=== PATIENT | female | born 1980 | race Caucasian/White ===

== ENCOUNTER 2018-11-30 13:25 | Emergency (ER) | payer MEDICAID, SELFPAY ==
[2018-11-30 13:33] VITALS: BP 158/68; PULSE 96; RESP 20; TEMP 36.4; O2SAT 98
--- NOTE | 2018-11-30 14:01 | NUR.NOTE ---
pt feels like she swallowed the meat challenging with luis-laura Nursing Note:
--- NOTE | 2018-11-30 14:07 | ED.GENADUL_ITS ---
Discharge Plan Disposition Patient Disposition: HOME Condition: Improving Discharge Details Chief Complaint: ThroatFB Clinical Impression: Foreign body in throat Primary Care Provider: Francisco Greene ED Provider: Landen Riddle Home Meds and New Rx's Prescriptions: Continued folic acid 0.4 MG tablet 0.4 mg PO DAILY RF: 0 methotrexate sodium 2.5 MG tablet 8 tab PO wkly RF: 0 meloxicam 7.5 MG tablet 1 tab PO DAILY RF: 0 Discharge Instructions Instructions: Foreign Body in Pharynx (ED) Additional Instructions: Return to the emergency department for any difficulty breathing, swallowing, cough, fever chills. Otherwise follow-up with your primary care provider as needed for reassessment Referrals: Francisco Greene MD [Primary Care Provider] - (As needed) Discharge Data Discharge Date/Time-TO BE ENTERED AT DEPARTURE: 11/30/18 14:43 Medical Decision Making Patient presenting to the emergency department for chief complaint of foreign body in her throat. Patient states that she was eating pork for lunch and felt like a piece got stuck in her throat. She was unable to swallow and started having drooling and some shortness of breath. Patient presented to the emergency department continue to have the symptoms. Notes nursing staff noted that patient was having some drooling and slight hoarse voice upon presentation. By the time I was able to assess the patient patient states that she felt that she had swallowed the foreign body and only had mild irritation to her neck. Physical exam is unremarkable and patient has no evidence of airway obstruction on exam. Patient was given carbonated cola to drink and observed for any worsening symptoms. Otherwise given that patient's symptoms have resolved I do not feel that any further interventions or imaging is required at this time. Patient observed for 1 hour reassessed she now has only had improvement of symptoms no cough, and only states mild irritation to her throat. I do not feel that any other interventions are needed. Return precautions were closely discussed with patient. After discussion of diagnosis and plan of care patient has no further needs, questions, or concerns and states clear understanding to return to the emergency department for any worsening symptoms. HPI General Mode of arrival: ambulatory . Date/Time Provider Initiated Documentation: 11/30/18 13:29 . Limitations to Documentation: no limitations . Information obtained by: patient and RN notes reviewed . History of Present Illness 38 year old F presents to the emergency department with the chief complaint of Foreign body throat, described as mild, with intensity rated at 2. Quality is described as aching, and is localized to the neck. Patient started experiencing this minute(s) (30) and it has been constant. Patient did receive the following treatments prior to arrival, none Related Data Home Medications Medication Instructions Recorded Confirmed folic acid 0.4 mg PO DAILY tab-cap 08/24/14 11/30/18 methotrexate sodium 8 tab PO wkly 08/24/14 11/30/18 meloxicam 1 tab PO DAILY 11/29/17 11/30/18 Allergies Allergy/AdvReac Type Severity Reaction Status Date / Time No Known Allergies Allergy Unverified 11/30/18 13:35 General Stated Complaint: ThroatFB SORIN: 3 Review of Systems ENT Reports as per HPI Cardiovascular Denies chest pain, Denies syncope and Reports dyspnea Respiratory Reports as per HPI, Reports cough and Reports dyspnea Gastrointestinal Denies nausea and Denies vomiting Neurologic Denies syncope PFSH Medical History Anxiety (Acute 02/01/18) Rheumatoid arthritis involving multiple sites with positive rheumatoid factor (Acute 09/20/15) Frequent headaches Family History Mother Essential hypertension Neoplasm Father Essential hypertension Hyperlipidemia Grandfather Myocardial infarction Grandmother Myocardial infarction Grandfather Heart disease Grandmother No problems noted. Social History Smoking/Tobacco Use Status: Former Tobacco Use Drug use: Never Exam Const General: cooperative, no acute distress and not ill appearing Orientation: alert, awake and oriented x3 HENMT Face and sinus: normal facial exam Mouth: lip normal, tongue normal, oropharynx normal, moist mucous membranes, no audible dysphonia, no drooling and no trismus Throat: posterior oropharynx normal, tonsils normal and uvula midline Resp Effort & Inspection: normal respiratory effort, able to speak in complete sentences and no respiratory distress Auscultation: clear to auscultation bilaterally Cardio Rate: regular rate Rhythm: regular rhythm Heart Sounds: S1 normal and S2 normal Neuro General: alert, awake, oriented x3 and moves all extremities Course Vital Signs Temperature 36.4 C L 11/30/18 13:33 Pulse 96 H 11/30/18 13:33 Respiratory Rate 20 11/30/18 13:33 Blood Pressure 158/68 H 11/30/18 13:33 Pulse Oximetry 98 11/30/18 13:33 Temperature 36.4 C L 11/30/18 13:33 Temperature Source Temporal Artery Scan 11/30/18 13:33 Pulse 96 H 11/30/18 13:33 Respiratory Rate 20 11/30/18 13:33 Respiratory Effort Non-Labored 11/30/18 13:39 Respiratory Pattern Normal 11/30/18 13:39 Blood Pressure 158/68 H 11/30/18 13:33 Pulse Oximetry 98 11/30/18 13:33 Oxygen Delivery Method Room Air 11/30/18 13:33 Oxygen Flow Rate 0 11/30/18 13:33 Pain Level 0 11/30/18 13:33
== END 2018-11-30 14:43 | disposition home or self-care (01) ==
PROVIDERS: Emergency Provider Nurse Practitioner Family; PCP Family Medicine
DX: T18.128A Food in esophagus causing other injury, initial encounter (principal)
CPT/HCPCS: 99282

== ENCOUNTER 2020-07-22 11:27 | Outpatient (CLI) | payer MEDICAID, SELFPAY ==
[2020-07-22 12:56] LABS: Abs Immature Grans 0.02 10^3/uL (0.0-0.06); Absolute Basophil Count 0.04 10^3/uL (0.0-0.2); Absolute Lymphocyte Count 1.73 10^3/uL (1.2-3.4); Absolute Monocyte Count 0.43 10^3/uL (0.1-0.8); Absolute Neutrophil Count 4.55 10^3/uL (1.2-6.7); Basophils % 0.6; Eosinophils % 1.5; HGB 12.7 g/dL (11.2-15.7); Immature Grans % 0.3; Lymphocytes % 25.2; MCH 31.1 pg (27.0-33.0); MCHC 33.4 % (32.0-36.0); MCV 93.1 fL (80-95); MPV 10.3 fL (8.0-11.0); Monocytes % 6.3; Neutrophils % 66.1; Nucleated RBC 0 %; Platelet Count 307 10^3/uL (130-400); RBC 4.08 10^6/uL (3.93-5.22); RDW 12.7 % (11.7-14.6); RDW-SD 43.1 fL; WBC 6.87 10^3/uL (4.4-10.8)
[2020-07-22 13:16] LABS: ALT 23 U/L (14-59); AST 17 U/L (15-37); Albumin 4.2 g/dL (3.4-5.0); Alkaline Phosphatase 50 U/L (46-116); Anion Gap 7.9 mmol/L (3-11); BUN 12 mg/dL (7-18); Bilirubin, Total 0.5 mg/dL (0.2-1.0); CO2 27.1 mmol/L (21.0-32.0); CREATININE 0.89 mg/dL (0.55-1.02); Calcium 8.6 mg/dL (8.5-10.1); Chloride 102 mmol/L (98-107); Glucose 93 mg/dL (74-106); Sodium 137 mmol/L (136-145); Total Protein 7.7 g/dL (6.4-8.2)
== END 2020-07-22 11:47 ==
DX: F41.9 Anxiety disorder, unspecified (principal); K21.9 Gastro-esophageal reflux disease without esophagitis; M05.79 Rheumatoid arthritis with rheumatoid factor of multiple sites without organ or systems involvement
CPT/HCPCS: 36415; 80053; 85025

== ENCOUNTER 2020-07-26 02:12 | Outpatient (CLI) | payer MEDICAID, SELFPAY ==
--- NOTE | 2020-07-26 | DI.US_ITS ---
EXAM: MG MAMMO SCREENING, US BREAST RT COMPLETE, US BREAST LT COMPLETE CLINICAL HISTORY: SCREENING, Z12.39; PER DR. THOMPSON, FAMILY HX. PALPABLE ABNORMALITY, SUPERIOR LEFT BREAST. TECHNIQUE: Craniocaudal and mediolateral oblique Full Field Digital Mammography views of the both br easts with Computer Aided Diagnosis followed by Tomosynthesis and bilateral breast ultrasound. COMPARISON: US US BREAST LT COMPLETE from 07/26/2020 FINDINGS: This is a baseline examination. The patient notes a palpable abnormality in the superior left breast . Mammography/Tomosynthesis: The breasts are composed of extremely dense fibroglandular tissue, which decreases the sensitivity of the mammogram and may obscure underlying lesions. Masses/Architectural Distortion: A smoothly marginated mass is seen in the 12 o'clock position of the left breast measuring roughly 2 cm. A spot compression view with tomography was performed of the medial right breast for an area of asymm etry. No persistent abnormality was present. Microcalcifications: No suspicious pleomorphic-type are seen. Skin Thickening/Nipple Retraction: None. Right breast US: Echotexture: Normal appearance of the glandular tissue. Shadowing: No suspicious foci. Cyst: 7 x 3 x 4 millimeter circumscribed hypoechoic lesion with increased through transmission is not ed in the 11 o'clock position 1 cm from the nipple. This could represent a cyst with debris or a sma ll fibroadenoma. No suspicious masses are identified. Ductal dilation: None. Left breast ultrasound: The palpable abnormality corresponds to a circumscribed ovoid hypoechoic lesi on measuring 1.9 x 1.6 x 0.9 cm. There is increased through transmission. Findings likely represent a fibroadenoma. IMPRESSION: 1. Left breast: 1.9 centimeter hypoechoic lesion corresponding to the palpable abnormality, likely re presenting a fibroadenoma. Six-month follow-up ultrasound is recommended. Due to the family history of breast cancer, biopsy or MRI could be considered. 2. Right breast: 7 millimeter cyst versus fibroadenoma. Annual follow-up is recommended. BI-RADS Category 3 - 6 month - Probably Benign Finding: Recommend follow-up ultrasound in 6 months Breast Density - Category D - Extremely dense Breast density category C or D implies that the patient has dense breast tissue. Dense breast tissue is very common and is not abnormal but dense breast tissue can make it harder to find cancer on a ma mmogram. Also, dense breast tissue may increase their breast cancer risk. This information about the result of the mammogram report was provided to the patient to raise their awareness. Use this report when you speak with the patient about their risks for breast cancer, which includes their family hist ory. At that time, you may recommend for more screening tests (Ultrasound or MRI) as they might be us eful based on their risk. A negative radiographic report should not delay biopsy if a dominant or clinically suspicious mass is present. Up to ten percent of cancers are not identified on mammography. A negative report may reinforce clinical impression. Adenosis and dense breasts may obscure an underlying neoplasm. False positive reports average 6 to 10%. Patient will receive a letter notifying them of these results.
== END 2020-07-26 02:32 ==
DX: Z12.31 Encounter for screening mammogram for malignant neoplasm of breast (principal); Z80.3 Family history of malignant neoplasm of breast; R92.8 Other abnormal and inconclusive findings on diagnostic imaging of breast
CPT/HCPCS: 76642; 77063; 77067

== ENCOUNTER 2021-10-16 04:17 | Outpatient (CLI) | payer MEDICAID, SELFPAY ==
[2021-10-16 09:29] LABS: Abs Immature Grans 0.02 10^3/uL (0.0-0.06); Absolute Basophil Count 0.05 10^3/uL (0.0-0.2); Absolute Eosinophil Count 0.15 10^3/uL (0.0-0.7); Absolute Lymphocyte Count 1.77 10^3/uL (1.2-3.4); Absolute Monocyte Count 0.48 10^3/uL (0.1-0.8); Absolute Neutrophil Count 4.75 10^3/uL (1.2-6.7); Basophils % 0.7; Eosinophils % 2.1; HCT 35.5 % (36.0-46.0); Immature Grans % 0.3; Lymphocytes % 24.5; MCH 31.2 pg (27.0-33.0); MCHC 33.8 % (32.0-36.0); MCV 92.2 fL (80-95); MPV 9.7 fL (8.0-11.0); Monocytes % 6.6; Neutrophils % 65.8; Nucleated RBC 0 %; Platelet Count 242 10^3/uL (130-400); RBC 3.85 10^6/uL (3.93-5.22); RDW 12.2 % (11.7-14.6); WBC 7.22 10^3/uL (4.4-10.8)
[2021-10-16 10:59] LABS: Calculated LDL 137 mg/dL (<100); Cholesterol 211 mg/dL (<200); HDL Cholesterol 60 mg/dL (40-60); Triglyceride 74 mg/dL (<150)
[2021-10-16 11:00] LABS: ALT 24 U/L (14-59); AST 17 U/L (15-37); Albumin 3.9 g/dL (3.4-5.0); Alkaline Phosphatase 47 U/L (46-116); Anion Gap 7.3 mmol/L (3-11); BUN 12 mg/dL (7-18); Bilirubin, Total 0.6 mg/dL (0.2-1.0); CO2 27.7 mmol/L (21.0-32.0); CREATININE 0.8 mg/dL (0.55-1.02); Calcium 8.5 mg/dL (8.5-10.1); Chloride 105 mmol/L (98-107); Glucose 91 mg/dL (74-106); Potassium 4.6 mmol/L (3.5-5.1); Sodium 140 mmol/L (136-145); Total Protein 7.2 g/dL (6.4-8.2)
== END 2021-10-16 04:18 | disposition home or self-care (01) ==
PROVIDERS: Internal Medicine; PCP Nurse Practitioner
DX: Z13.220 Encounter for screening for lipoid disorders (principal); M05.79 Rheumatoid arthritis with rheumatoid factor of multiple sites without organ or systems involvement; Z79.899 Other long term (current) drug therapy
CPT/HCPCS: 36415; 80053; 80061; 85025

== ENCOUNTER 2021-11-03 02:18 | Outpatient (CLI) | payer MEDICAID, SELFPAY ==
--- NOTE | 2021-11-03 07:00 | DI.US_ITS ---
Exam(s) US PELVIS TRANSVAGINAL EXAM: US PELVIS TRANSVAGINAL CLINICAL HISTORY: enlarged uterus, heavy menstrual bleeding,n92.0,n85.2 TECHNIQUE: Ultrasound of the pelvis was performed both transabdominal and transvaginal. COMPARISON: US US BREAST RT COMPLETE from 07/26/2020 FINDINGS: UTERUS: Nongravid and anteverted. Prominent scar noted lower uterine segment Measures 6.6 cm length x 3.7 cm AP x 5.0 cm wide. There are no uterine fibroids. Endometrial thickness measures 8.2 mm. There is no fluid in the endometrial canal. CERVIX: There are no obvious nabothian cysts. RIGHT OVARY: Measures 1.9 x 2.3 x 2.0 cm Contains 2 cysts, probably follicular. The larger measures 1.2 x 1.1 x 1 cm LEFT OVARY: Measures 2 x 2.2 x 1.4 cm Contains cyst measuring 1 1 x 1.0 cm CUL-DE-SAC: No free fluid evident. IMPRESSION: 1. Prominent scar noted. No uterine fibroids evident. Endometrial stripe thickness is 8.2 millimeters. No fluid in the endometrial canal. 2. Cysts in both ovaries which are probably follicular. Largest of these cysts measures 12 by 11 x 1 0 millimeter (right ovary). 3. No extraovarian adnexal masses and no free fluid in the adnexal regions are cul-de-sac. DATA REPOSITORY:
== END 2021-11-03 02:38 ==
PROVIDERS: PCP Nurse Practitioner; Visit Provider Nurse Practitioner Women's Health
DX: N85.2 Hypertrophy of uterus (principal); N92.0 Excessive and frequent menstruation with regular cycle; N83.01 Follicular cyst of right ovary; N83.02 Follicular cyst of left ovary; Z98.891 History of uterine scar from previous surgery
CPT/HCPCS: 76830; 76856

== ENCOUNTER 2022-09-11 00:31 | Outpatient (CLI) | payer MEDICAID, SELFPAY ==
--- NOTE | 2022-09-11 06:30 | DI.RAD_ITS ---
Exam(s) RF BARIUM SWALLOW EXAM: RF BARIUM SWALLOW CLINICAL HISTORY: solid dysphagia, at CP level,R13.14 TECHNIQUE: 2D and realtime digital imaging was performed. CONTRAST MATERIAL: Oral barium Oral water soluble contrast was administered. COMPARISON: No exams were available for comparison FINDINGS: CHEST X-RAY: The heart and pulmonary vasculature are within normal limits. The lungs are clear. No pl eural effusion or pneumothorax is present. The bones are within normal limits for the patient's age. Mild degenerative changes are seen in the cervical spine. There is straightening of the normal cervi sarah lordosis. ESOPHAGRAM: The esophagus is patent with no evidence for erosions, fold thickening, strictures, or ma sses. With regards to the motility, there is a normal primary stripping wave. No tertiary contraction s were noted. There is no hiatal hernia or gastroesophageal reflux. The patient was able to swallow b arium tablet without difficulty. IMPRESSION: Normal esophagram RADIATION DOSE DELIVERED: Paulr=14.8 mGy
[2022-09-11] MEDS: Barium Sulfate 60% W/V 355 ML BTL PO (09:50)
[2022-09-11] MEDS: Barium Sulfate 98% W/W 140 ML BTL PO (09:51)
== END 2022-09-11 00:51 ==
LOC: DI 00:32
PROVIDERS: PCP Nurse Practitioner Family; Visit Provider Otolaryngology
DX: R13.14 Dysphagia, pharyngoesophageal phase (principal)
CPT/HCPCS: 74221; J3490

== ENCOUNTER 2022-10-27 07:33 | Day surgery (SDC) | payer MEDICAID, SELFPAY ==
[2022-10-27 08:25] VITALS: BP 105/55; PULSE 75; RESP 16; TEMP 36.5; O2SAT 98
[2022-10-27] MEDS: Lactated Ringers 1,000 ML 80 ML IV (08:35)
--- NOTE | 2022-10-27 08:50 | W.ANESPRE ---
General Info Date of Service Date Performed: 10/27/22 Height: 5 ft 6.5 in Weight: 71.8 kg Body Mass Index (BMI): 25.1 Surgical Procedure: Operation Date: 10/27/22 09:50 Proposed Procedure Side Surgeon p Gastroscopy w/Biopsy Drake Alcantara MD Meds Allergies and Home Medications Allergies Allergy/AdvReac Type Severity Reaction Status Date / Time No Known Allergies Allergy Verified 09/28/22 10:40 Home Medication Medication Instructions Recorded folic acid 400 mcg tablet 0.4 mg PO DAILY 08/24/14 methotrexate sodium 2.5 mg tablet 25 mg PO wkly 08/05/21 pantoprazole 40 mg tablet,delayed 40 mg PO DAILY #30 tabs 09/28/22 release (Protonix) sucralfate 1 gram tablet (Carafate) 1 g PO BID #60 tabs 09/28/22 Current Visit Medications: Current Medications Generic Name Dose Route Start Last Admin Trade Name Freq PRN Reason Stop Dose Admin Ringer's Solution 1,000 mls @ 80 mls/hr 10/27/22 06:00 10/27/22 08:35 IV 11/25/22 23:59 80 mls/hr INFUSION GURDEEP Administration IV Miscellaneous Supplies 1 each 10/27/22 06:00 Iv Access IV 11/25/22 23:59 DIRECTED GURDEEP Sodium Chloride 0 ml 10/27/22 06:00 Normal Saline Flush 10 Ml Syr IV 11/25/22 23:59 PRN PRN Sodium Chloride 0 ml 10/27/22 06:00 Normal Saline 10 Ml Vial IJ 11/25/22 23:59 DIRECTED PRN Sterile Water 0 ml 10/27/22 06:00 Water,Injection,Sterile 10 Ml Vial IJ 11/25/22 23:59 DIRECTED PRN PFSH Active Problems Active Problems: Problem Status Onset Code Erosive esophagitis K22.10 Pharyngoesophageal dysphagia R13.14 Hyperpigmented skin lesion L81.9 Bulky or enlarged uterus N85.2 Screening cholesterol level Z13.220 Abnormality of left breast on screening mammogram R92.8 Dysphagia R13.10 GERD (gastroesophageal reflux disease) K21.9 Anxiety 02/01/18 F41.9 Rheumatoid arthritis involving multiple sites with positive rheumatoid factor 09/20/15 M05.79 Medical History Medical History Frequent headaches Surgical History Surgical History History of bilateral tubal ligation Tobacco Smoking/Tobacco Use Status: Former Tobacco Use Passive smoking exposure: Yes Second hand exposure: Yes Alcohol Alcohol Intake: current Alcohol intake frequency: a few times a month Alcohol type: beer Substance Use Substance use: Never Substance use type: does not use Counseling provided: none Prental History History 4 Para 3 Hx # Term Pregnancies Multiple births 1 Hx # Pregnancies Ectopic pregnancies AB induced Hx Number of Living Children 2 AB spontaneous Vital Signs and Lab Results Vital Signs Most Recent Vital Signs in EMR: Most Recent Vital Signs Temp Pulse Resp BP Pulse Ox 36.5 C 75 16 105/55 L 98 10/27/22 08:25 10/27/22 08:25 10/27/22 08:25 10/27/22 08:25 10/27/22 08:25 Point of Care Results Point of Care Results: POC- Test(urine) Negative 10/27/22 08:46 Lab Results Blood Type / Crossmatch: No Data to Display Complete Blood Count: No Data to Display Complete Metabolic Panel: No Data to Display Liver Function Panel: No Data to Display Coagulation Panel: No Data to Display Cardiac Panel: No Data to Display Arterial Blood Gas: No Data to Display Venous Blood Gas: No Data to Display Pancreas Panel: No Data to Display Thyroid Panel: No Data to Display Infectious Disease: No Data to Display Blood Cultures: No Data to Display Toxicology Panel: No Data to Display Panel: No Data to Display Anesthesia Assessment and Plan Anesthesia History Personal History: No History of Anesthesia Complications Family History: No Family History of Anesthesia Complications Exercise Tolerance Exercise Tolerance: Metabolic Equivalents>4 Pertinent Negatives Pertinent Negatives: No Major Cardiovascular Symptoms or Complaints, No Major Pulmonary Symptoms or Complaints and No History of CVA/TIA Cardiac & Pulmonary Exam Cardiac Exam: Normal S1/S2 Heart Sounds Pulmonary Exam: Clear Bilateral Breath Sounds Implantable Cardiac Device Does patient have a Pacemaker or an ICD?: No Airway Exam Known Difficult Airway: No Mallampati Class: 2 Mouth Opening: Normal (> 3cm) Thyromental Distance: Greater than 3 cm Neck Range of Motion: Full ROM Neck Circumference: Normal Teeth Condition: Normal Dentition ASA Classification ASA Score: ASA 2 Emergency Case?: No NPO Status NPO Status: NPO Clears >2 hours, Solids >8 hours Status Status: Negative HCG Anesthesia Plan Resuscitation Status: Full Code Anesthesia Technique: General Anesthesia Airway Planned: Natural Airway Monitors Used: Standard Monitors
[2022-10-27 09:13] VITALS: BMI 25.1
--- NOTE | 2022-10-27 10:16 | ENDO_ITS ---
Date of service: 10/27/22 Time of Service: 10:16 Endoscopy Report PROCEDURE DESCRIPTION: Procedures performed: 1.? Esophagogastroduodenoscopy with cold forceps biopsies Preoperative diagnosis: Dysphagia Postoperative diagnosis: Distal esophagus stricture, sub-centimeter sliding hia ines hernia Surgeon: Jim Alcantara Anesthesia: Alisha Indication for procedure: 42-year-old woman with a couple years of dysphagia to solid foods. Only once have things actually gotten stuck and stayed stuck. This runs in her family she reports. She denies any esophageal trauma. She does have a history of acid reflux many years ago but it has not been a current problem for her. Dysphagia is in the cervical region - it is not retrosternal. She had a normal esophagram recently. Findings: - D3, D2 and D1 - normal - no inflammation or ulcers - Pylorus - patent.? No bile reflux visualized during procedure. - Antrum - looks normal visually- biopsies taken to rule out occult H. pylori - Stomach Body -normal/healthy appearance.? ? - Fundus -? Normal.? No polyps. - Hiatus - Retroflexion showed a very small, type I sliding hiatal hernia (subcentimeter slide) - Esophagus - distal esophagus does not look inflamed at al despite small hernia.? There is a complete, 360 degree stricture here(~35cm). It has a benign appearance. I biopsied it in 3 separate locations. Because of dysphagia biopsies were taken in the mid and cervical esophagus to rule out eosinophilic esophagitis. Special care was taken in the cervical esophagus to examine it. No diverticulum or inflammation or webs was seen in the cervical esophagus however at the level of the cricopharyngeus there is some sort of extrinsic mechanical process making a bump in the posterior esophagus. I wonder if some sort of prominence in the bony aspect of her spine is causing this. - Hypopharynx and cords appear normal visually. Follow-up recommendations: Pending biopsy results.? It is hard to understand how a distal stricture would be causing cervical dysphagia . . . If this stricture is problematic she should really be feeling things get stuck behind her sternum. Dilation is an option but it is not my practice to perform dilation without first knowing the biopsy results of the strictures as well as the possibility of underlying eosinophilic esophagitis. Complications: None Blood loss: Minimal Specimens:? YES Procedure in detail: Written consent was obtained from the patient who was in agreement with the risks, benefits and indications of the procedure.? We went to the endoscopy suite and laid the patient in left lateral decubitus position.? Anesthesia was administered which was tolerated well.? A timeout was performed and when we are all in agreement we began the procedure. A well?lubricated endoscope was advanced without difficulty down the esophagus, into the stomach, through a patent pylorus and into the duodenum.? It was then slowly pulled back with findings noted above. The scope was then removed and the patient tolerated the procedure well and was then turned for the colonoscopy portion of the procedure (see separate procedure note)
--- NOTE | 2022-10-27 10:27 | ESO_PTH ---
PATIENT: Adelita Fam LOC: [facility] U#:[id number] AGE/SX: 42/F ROOM: RE10/27/[address]: Drake Alcantara : 1980 BED: DIS: 10/27/2022 SPEC #: [id number] RECD: 10/27/22 12:49 STATUS: ARNAUD MILLER #: [id number] CHIOMA: 10/27/22 10:[address]: Drake Alcantara DEPT: Surgical Specimen RECD BY: Kasandra Beckman ENTERED: 10/27/22 12:50 SP TYPE: Lissetho TERESA DR: Linnea Lee, COAL PASSER Tissues: 1 - STOMACH BIOPSY 2 - ESOPHAGUS BIOPSY 3 - ESOPHAGUS BIOPSY 4 - ESOPHAGUS BIOPSY 5 - ESOPHAGUS BIOPSY Procedures: GROSS AND MICRO LEVEL 4 Comments: [id number]
[2022-10-27 10:44] VITALS: BP 109/56; PULSE 85; RESP 16; TEMP 36.4; O2SAT 94
[2022-10-27 11:20] VITALS: BP 101/63; PULSE 63; RESP 16; TEMP 36.4; O2SAT 98
--- NOTE | 2022-10-27 11:45 | W.ANESPOSTOP ---
Postoperative Evaluation Date, Time and Location Date Performed: 10/27/22 Time Performed: 11:40 Patient Location: Day Surgery Unit Vital Signs Most Recent Imported Vital Signs: Most Recent Vital Signs Temp Pulse Resp BP Pulse Ox 36.4 C L 63 16 101/63 98 10/27/22 11:20 10/27/22 11:20 10/27/22 11:20 10/27/22 11:20 10/27/22 11:20 Pain Score Most Recent Pain Score: Most Recent Pain Score Pain Level 2 10/27/22 11:20 Assessment Mental Status: Awake (Alert & Oriented to Patient Baseline) Airway and Respiratory Function: Patent airway with normal (patient baseline) respiratory exam Cardiovascular Function: Hemodynamically Stable Hydration Status: Adequately Hydrated Nausea & Vomiting: No Nausea or Vomiting Pain: Pain is tolerable per patient Peripheral Nerve Block: Patient did not receive a nerve block Postoperative Comments:: Burning sensation in throat/mid chest, not associated with breathing, surgeon aware, most likely GERD
== END 2022-10-27 11:42 | disposition home or self-care (01) ==
PROVIDERS: PCP Nurse Practitioner Family; Visit Provider Student in an Organized Health Care Education/Training Program
PROC: 0DJ68ZZ Inspection of Stomach, Via Natural or Artificial Opening Endoscopic (ICD-10-PCS; CPT 43235; principal; 2022-10-27 09:45)
DX: K22.2 Esophageal obstruction (principal); K44.9 Diaphragmatic hernia without obstruction or gangrene; K22.89 Other specified disease of esophagus; K31.89 Other diseases of stomach and duodenum
CPT/HCPCS: 43239; 88305

== ENCOUNTER 2022-11-24 20:18 | Emergency (ER) | payer MEDICAID, SELFPAY ==
[2022-11-24 20:22] VITALS: BP 143/61; PULSE 98; RESP 14; TEMP 36.7; O2SAT 100
--- NOTE | 2022-11-24 20:41 | DI.CT_ITS ---
Exam(s) CT ABDOMEN PELVIS W EXAM: CT ABDOMEN PELVIS W CLINICAL HISTORY: left lower abdominal pain. TECHNIQUE: Imaging Protocol: Axial computed tomography images with coronal and sagittal reformatted images were created and reviewed CONTRAST MATERIAL: Intravenous: Omnipaque-350 100cc Oral: None COMPARISON: No exams were available for comparison FINDINGS: VISUALIZED LUNG BASES: There is a pleural based density in the lateral basal segment of the left lowe r lobe which measures 6 x 4 mm. No other findings in the lung bases. No pleural effusions.. ABDOMEN: There is no ascites. LIVER: There are no focal hepatic lesions evident. No dilated intrahepatic ducts. GALLBLADDER/BILIARY: No obvious gallbladder pathology. CBD is not dilated. PANCREAS: No evidence of pancreatic mass nor dilatation of the pancreatic duct. SPLEEN: Spleen is not enlarged. No obvious intrasplenic lesions. Splenic and portal veins are paten t. ADRENALS: There are no significant adrenal masses. KIDNEYS:No cysts evident. No solid renal masses. No calculi nor hydronephrosis.. ABDOMINAL AORTA: Abdominal aorta is not enlarged. LYMPH NODES:There is no retroperitoneal nor paraaortic adenopathy. ABDOMINAL WALL: No evidence of significant anterior abdominal wall nor inguinal hernia. GI: There is no evidence of bowel obstruction, free air, nor abscess. PELVIS: GI: No evidence of appendicitis.No evidence of sigmoid diverticulitis. LYMPH NODES: There is no intrapelvic nor inguinal adenopathy. REPRODUCTIVE: Uterus size normal. Multiple cysts are noted in the slightly prominent right ovary, th nanda cysts measuring to 2.5 x 2.2 cm size. On the opposite-left side there also multiple small cysts in the left ovary. There is also a peripherally enhancing tubular structure in the left adnexa measu ring 8 mm diameter and suspicious for enlarged left fallopian tube. No free fluid evident. URINARY BLADDER: No calculi nor obvious masses evident OSSEOUS: No fractures and no significant osseous lesions. IMPRESSION: 1. The main finding here is a peripherally enhancing 8 mm diameter tubular fluid-filled structure in the left adnexa, concerning for hydro or pyosalpinx/salpingitis. Such as seen with pelvic inflammato ry disease. 2. Follicular cysts in both ovaries noted. The largest is in the right ovary and measures 2.5 x 2.2 cm. There is no dilated fallopian tube on the right side. RADIATION DOSE DELIVERED: 1,070.26mGy.cm Total DLP DATA REPOSITORY: All CT scans at this facility are submitted to the National Radiology Data Registry (NRDR) Dose Index Registry (DIR) with the [employer] (A[employer]). RADIATION OPTIMIZATION: All CT scans at this facility use at least one of these dose optimization te chniques: automated exposure control; mA and/or kV adjustment per patient size (includes targeted exa ms where dose is matched to clinical indication); or iterative reconstruction.
--- NOTE | 2022-11-24 20:43 | ED.GENADUL_ITS ---
Discharge Plan Disposition Patient Disposition: Home Condition: Stable Discharge Details Clinical Impression: Abdominal pain Primary Care Provider: Linnea Lee ED Provider: Saul Coronel Home Meds and New Rx's Prescriptions: New doxycycline hyclate 100 mg tablet 100 mg PO BID Qty: 28 0RF metronidazole 500 mg tablet 500 mg PO BID Qty: 28 0RF Continued methotrexate sodium 2.5 mg tablet 25 mg PO wkly Patient Comments: 08/24/14 rx by [facility]. 11/29/18 takes 10 tabs weekly. DL 04/04/19 10 tabs PO once weekly Per [facility] Rheumatology. DL 05/06 7 tabs (17.5mg) per [facility] pantoprazole [Protonix] 40 mg tablet,delayed release (DR/EC) 40 mg PO DAILY Qty: 30 12RF sucralfate [Carafate] 1 gram tablet 1 g PO BID Qty: 60 6RF Humira(CF) 40 mg/0.4 mL syringe kit 40 mg subcut QWEEK folic acid 0.4 MG tablet 0.4 mg PO DAILY Patient Comments: 08/24/14 no sure of mg. rx by [facility]. md Discharge Instructions Additional Instructions: Your urine test showed evidence of a urinary tract infection. Your cat scan showed evidence of an infection of your reproductive organs follow up alice with women's wellness to determine if you need to continue antibiotics and have a follow up ultrasound if you develop severe worsening pain, persistent vomiting or fevers return to the emergency department Medical Decision Making 42 yo female with two previous c sections, hx of gerd, RA, who comes in with 2 days of left sided abdominal pain. She denies fevers, vomiting, has had some nausea. She states she had a normal BM yesterday, has had some discomfort in the abdomen with urination, no vaginal bleeding but states she has chronic vaginal discharge that is unchanged or worsened, denies concern for std has been for over 20 years. She has noted irregular periods for awhile per patient but has never had pain like this. She arrives stable, localizes the pain to the llq. Her abdomen is not distended or firm, no right sided tenderness, is tender in the llq and luq. Unclear etiology for her symptoms, concern for diverticulitis vs kidney stone vs ovarian cyst, will obtain cbc, cmp, lipase and ct abd/pelvis to further evaluate blood work unremarkable, ua concerning for uti, ct pending, patient feels better after toradol vrad reading returns as probably pelvic inflammatory disease with question of left sided pyosalpinx. Pt confirms in monogamous relationship and has no concern for std. Patient stable and feels well, tolerating po, will proceed with pelvic exam and obtain vag path screen and gc/chlamydia After initially consenting to having pelvic exam patient changed her mind and declined to have pelvic exam. 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 Given the CT findings I will initiate treatment for pid with im ceftriaxone and oral doxy and flagyl. Will give one time dose of fosfomycin as well for possible uti. She is tolerating po, hemodynamically stable and has no fevers and minimal left lower quadrant tenderness so feel she is appropriate for outpatient management. She will follow up with women's wellness, return precautions given Differential Diagnosis Differential Diagnosis: diverticulitis, kidney stone, ovarian cyst Imaging Data Radiologic Study: Attestation: I personally reviewed and interpreted this imaging study as follows: Imaging: CT Scan Radiologist's impression: IMPRESSION: Probable pelvic inflammatory disease with concern for left-sided pyosalpinx. Consider pelvic ultrasound for further evaluation. Lab Data Lab results reviewed: Yes I reviewed the patient's lab results. HPI General Mode of arrival: ambulatory . Date/Time Provider Initiated Documentation: 11/24/22 20:34 . Limitations to Documentation: no limitations . Information obtained by: patient . History of Present Illness 42 year old F presents to the emergency department with the chief complaint of left lower quadrant abdominal pain, described as moderate, Patient started experiencing this day(s) (1) and it has been constant. No relieving factors improve symptom(s), No exacerbating factors reported . Patient notes no other symptoms.. Patient did receive the following treatments prior to arrival, NSAID Related Data Home Medications Medication Instructions Recorded Confirmed folic acid 400 mcg tablet 0.4 mg PO DAILY 08/24/14 11/24/22 methotrexate sodium 2.5 mg tablet 25 mg PO wkly 08/05/21 11/24/22 pantoprazole 40 mg tablet,delayed 40 mg PO DAILY #30 tabs 09/28/22 11/24/22 release (Protonix) sucralfate 1 gram tablet (Carafate) 1 g PO BID #60 tabs 09/28/22 11/24/22 adalimumab 40 mg/0.4 mL 40 mg subcut QWEEK 11/09/22 11/24/22 subcutaneous syringe kit (Humira(CF)) doxycycline hyclate 100 mg tablet 100 mg PO BID #28 tabs 11/24/22 metronidazole 500 mg tablet 500 mg PO BID #28 tabs 11/24/22 Previous Rx's Medication Instructions Recorded pantoprazole 40 mg tablet,delayed 40 mg PO DAILY #30 tabs 09/28/22 release (Protonix) sucralfate 1 gram tablet (Carafate) 1 g PO BID #60 tabs 09/28/22 doxycycline hyclate 100 mg tablet 100 mg PO BID #28 tabs 11/24/22 metronidazole 500 mg tablet 500 mg PO BID #28 tabs 11/24/22 Allergies Allergy/AdvReac Type Severity Reaction Status Date / Time No Known Allergies Allergy Verified 11/24/22 20:29 General Stated Complaint: Abd Prob SORIN: 3 Review of Systems All systems reviewed & are unremarkable except as noted in HPI and below Constitutional Constitutional: Denies chills, Denies fever(s) and Denies weakness Cardiovascular Cardiovascular: Denies chest pain and Denies dyspnea Respiratory Respiratory: Denies cough and Denies dyspnea Gastrointestinal Gastrointestinal: Denies vomiting Genitourinary Genitourinary: Denies dysuria Integumentary/Breasts Skin/Breast: Denies rash Neurologic Neurologic: Denies weakness PFSH All Active Problems (Updated 11/24/22 @ 23:06 by Saul Coronel MD) Abdominal pain (Acute) Erosive esophagitis (Acute) Diagnosed by biopsy in 2014 Pharyngoesophageal dysphagia (Acute) Hyperpigmented skin lesion (Acute) Multiple on back. Facial skin that darkens in the summer Bulky or enlarged uterus (Acute) Screening cholesterol level (Acute) Abnormality of left breast on screening mammogram (Acute) Dysphagia (Acute) GERD (gastroesophageal reflux disease) (Chronic) Anxiety (Acute 02/01/18) Rheumatoid arthritis involving multiple sites with positive rheumatoid factor (Acute 09/20/15) Medical History Frequent headaches Surgical History History of bilateral tubal ligation Family History Mother Essential hypertension Breast cancer oral cancer Gum cancer Father Essential hypertension Hyperlipidemia Maternal Grandfather , 65 Myocardial infarction Maternal Grandmother , 63 Myocardial infarction Paternal Grandfather , 60s Heart disease Paternal Grandmother , 93 Melanoma Heart disease Sister No problems noted. Son , at No problems noted. Son , at No problems noted. Social History Smoking/Tobacco Use Status: Former Tobacco Use Quit Date: 08/16/01 Second Hand Exposure: Yes Smoking risk assessment performed?: Yes Alcohol Intake: current Alcohol Intake frequency: a few times a month Alcohol type: beer Drug use: Never Substance use type: does not use Counseling given: No Counseling provided: none Caregiver/Support person: No Household members: significant other and children Housing: house Communication Needs: None Do you need help understanding health information?: Never Pets and animals: Yes Pets and animals: dog(s) Sexually active: Yes Do you think of yourself as: straight/heterosexual Current gender identity: female What is your relationship status?: How often do you talk on the phone with friends or family?: three or more times per week How often do you get together with friends or relatives?: twice per week How often do you attend cheondoism or rastafarian services?: decline to answer Do you belong to any clubs or organized social groups?: no Panel score (0-1 are the most socially isolated patients): 2 What type of physical activity do you participate in: none Josy/Mormonism: No preference Special josy needs: No Seatbelt use: always Helmet use: Yes Helmet use: always Drive intox or ride w/intox commercial front load driver: No Do you feel safe at home: Yes Do you feel safe in your relationship?: Yes Victim of physical abuse: No Victim of emotional abuse: No Victim of sexual abuse: No Would you like helpful sources: No Female Reproductive History Menstrual control method: permanent sterilization History History 4 Para 3 Hx # Term Pregnancies Multiple births 1 Hx # Pregnancies Ectopic pregnancies AB induced Hx Number of Living Children 2 AB spontaneous Exam Const General: no acute distress Orientation: alert HENMT Head: normal to inspection Ears: external ears normal General nose exam: external nose normal Mouth: moist mucous membranes Eyes General: appearance normal, both eyes and all related structures Neck Neck: normal visual inspection Resp Effort & Inspection: normal respiratory effort and able to speak in complete sentences Cardio Rate: regular rate GI Palpation: soft and tender Skin General skin exam: no rashes or lesions noted Neuro General: patient alert and patient oriented x3 Extrem General: normal to inspection Psych Mental Status: mental status grossly normal Course Vital Signs Vital signs: Vital Signs Temperature 36.7 C 11/24/22 20:22 Pulse 98 H 11/24/22 20:22 Respiratory Rate 14 11/24/22 20:22 Blood Pressure 143/61 H 11/24/22 20:22 Pulse Oximetry 100 11/24/22 20:22 Temperature 36.7 C 11/24/22 20:22 Temperature Source Oral 11/24/22 20:22 Pulse 98 H 11/24/22 20:22 Respiratory Rate 14 11/24/22 20:22 Respiratory Effort Normal 11/24/22 20:28 Blood Pressure 143/61 H 11/24/22 20:22 Blood Pressure Position Sitting 11/24/22 20:22 Pulse Oximetry 100 11/24/22 20:22 Oxygen Delivery Method Room Air 11/24/22 20:22 Oxygen Flow Rate 0 11/24/22 20:22 Pain Level 6 11/24/22 20:22
[2022-11-24] MEDS: Normal Saline 1,000 ML 1000 ML IV (20:51)
[2022-11-24 20:52] LABS: Abs Immature Grans 0.04 10^3/uL (0.0-0.06); Absolute Basophil Count 0.06 10^3/uL (0.0-0.2); Absolute Lymphocyte Count 3.23 10^3/uL (1.2-3.4); Absolute Monocyte Count 0.89 10^3/uL (0.1-0.8); Basophils % 0.5; Eosinophils % 1.7; HCT 36.1 % (36.0-46.0); HGB 12.4 g/dL (11.2-15.7); Immature Grans % 0.3; Lymphocytes % 27.7; MCHC 34.3 % (32.0-36.0); MCV 90 fL (80-95); Monocytes % 7.6; Neutrophils % 62.2; Platelet Count 294 10^3/uL (130-400); RDW-SD 39.2 fL; WBC 11.67 10^3/uL (4.4-10.8)
[2022-11-24 20:53] LABS: Absolute Neutrophil Count 7.26 10^3/uL (1.2-6.7); Bilirubin Negative (Negative); Blood Moderate (Negative); Clarity Cloudy (Clear); Glucose Negative (Negative); Ketones Trace mg/dL (Negative); Leukocyte Esterase Large (Negative); Nitrite Negative (Negative); Specific Gravity 1.025 (1.005-1.025); pH 6.5 (5-8)
[2022-11-24] MEDS: Ketorolac 15 MG/ML VIAL IVP (20:57)
[2022-11-24 21:03] LABS: Bacteria Many HPF (Negative); C & S Indicated? Yes; Casts Negative LPF (Negative); Crystals Negative HPF (Negative); Epithelial Cells Few HPF (Negative); Mucus Trace (Negative); WBC 20-50 HPF (0-5)
[2022-11-24 21:11] LABS: ALT 23 U/L (14-59); AST 12 U/L (15-37); Albumin 3.9 g/dL (3.4-5.0); Alkaline Phosphatase 70 U/L (46-116); Anion Gap 6.9 mmol/L (3-11); BUN 13 mg/dL (7-18); Bilirubin, Total 0.3 mg/dL (0.2-1.0); CO2 30.1 mmol/L (21.0-32.0); CREATININE 0.9 mg/dL (0.55-1.02); Calcium 8.7 mg/dL (8.5-10.1); Chloride 102 mmol/L (98-107); Estimated GFR 81.35 (mL/min/1.73m2); Glucose 121 mg/dL (74-106); Magnesium 2.1 mg/dL (1.8-2.4); Potassium 3.6 mmol/L (3.5-5.1); Sodium 139 mmol/L (136-145); Total Protein 8.2 g/dL (6.4-8.2)
[2022-11-24 21:30] LABS: Lipase 34 U/L (16-77)
[2022-11-24] MEDS: Omnipaque 350 MG/ML 100 ML BTL IJ (21:30)
[2022-11-24] MEDS: Normal Saline - Diluent 50 ML VIAL IV (21:33)
--- NOTE | 2022-11-24 22:17 | DI.VRAD_ITS ---
PROCEDURE INFORMATION: Exam: CT Abdomen And Pelvis With Contrast Exam date and time: 11/24/2022 9:24 PM Age: 42 years old Clinical indication: Other: Left lower abdominal pain TECHNIQUE: Imaging protocol: Computed tomography of the abdomen and pelvis with contrast. Radiation optimization: All CT scans at this facility use at least one of these dose optimization techniques: automated exposure control; mA and/or kV adjustment per patient size (includes targeted exams where dose is matched to clinical indication); or iterative reconstruction. Contrast material: OMNIPAQUE 350; Contrast volume: 100 ml; Contrast route: INTRAVENOUS (IV); COMPARISON: US PELVIS TRANSVAGINAL 11/03/2021 1:03 PM FINDINGS: Lungs: Minimal scarring in the right lung base. Liver: Normal. No mass. Gallbladder and bile ducts: Gallbladder is contracted. No biliary duct dilatation. Pancreas: Normal. No ductal dilation. Spleen: Normal. No splenomegaly. Adrenal glands: Normal. No mass. Kidneys and ureters: Normal. No hydronephrosis. Stomach and bowel: Unremarkable. No obstruction. No mucosal thickening. Appendix: Normal appendix. Intraperitoneal space: Unremarkable. No free air. No significant fluid collection. Vasculature: Unremarkable. No abdominal aortic aneurysm. Lymph nodes: Unremarkable. No enlarged lymph nodes. Urinary bladder: Urinary bladder is nondistended. Reproductive: Tubular fluid-filled structure with enhancing nick in the left adnexa, concerning for salpingitis. Bones/joints: Unremarkable. No acute fracture. Soft tissues: Unremarkable. IMPRESSION: Probable pelvic inflammatory disease with concern for left-sided pyosalpinx. Consider pelvic ultrasound for further evaluation. Dictated and Authenticated by: Amadou Muro MD. Ordering:MILAGROS Hughes MD
[2022-11-24] MEDS: metroNIDAZOLE 500 MG TAB PO (23:18)
[2022-11-24] MEDS: Doxycycline Hyclate 100 MG CAP PO (23:18)
[2022-11-24] MEDS: Fosfomycin Tromethamine 3 GM PACKET PO (23:18)
[2022-11-24] MEDS: cefTRIAXone 1 GM VIAL 0.5 GM IM (23:20)
[2022-11-24 23:30] VITALS: BP 113/61; PULSE 98; RESP 16; O2SAT 98
== END 2022-11-24 23:43 | disposition home or self-care (01) ==
PROVIDERS: Emergency Provider Emergency Medicine; PCP Nurse Practitioner Family
DX: R10.32 Left lower quadrant pain (principal); R11.0 Nausea; R10.812 Left upper quadrant abdominal tenderness; R10.814 Left lower quadrant abdominal tenderness
CPT/HCPCS: 80053; 81025; 83690; 87077; 96361; 96372; 96374; 99285; 74177; 81003; 81015; 83735; 85025; 87086; 87186; 99284; J0696; J1885; J3490

== ENCOUNTER 2022-12-02 02:03 | Outpatient (CLI) | payer MEDICAID, SELFPAY ==
--- NOTE | 2022-12-02 07:00 | DI.US_ITS ---
Exam(s) US PELVIS TRANSVAGINAL EXAM: US PELVIS TRANSVAGINAL CLINICAL HISTORY: ? L pyosalpinx and PID,PELVIC PAIN, R10.2. TECHNIQUE: Transabdominal and transvaginal pelvic ultrasound was performed using standard protocol. COMPARISON: US US PELVIS TRANSVAGINAL from 11/03/[address] ABDOMEN PELVIS W from 11/24/2022 FINDINGS: UTERUS: Position: Anteverted. Size: 7.8 long by 4.5 AP by 5.0 transverse cm Endometrium: 1.3 cm. Normal for patient's menstrual status. Myometrium: Unremarkable. Cervix: Unremarkable. OVARIES: Right: 2.1 x 1.5 x 1.9 cm Cyst or mass: No suspicious cystic or solid masses. There is a 3 x 2.7 x 3.1 cm simple cyst in the r ight ovary. Left: 2.8 x 1.7 x 1.8 cm Cyst or mass: No suspicious cystic or solid masses. DOPPLER: Color: Symmetric and uniform flow to both ovaries. CUL-DE-SAC: Free fluid: None. Other: No adnexal masses are seen sonographically. IMPRESSION: 1. Normal-appearing uterus with endometrial stripe within normal limits. 2. Unremarkable bilateral ovaries. 3. No evidence of an adnexal mass is seen sonographically. DATA REPOSITORY:
== END 2022-12-02 02:23 ==
LOC: DI 02:03
PROVIDERS: PCP Nurse Practitioner Family; Visit Provider Nurse Practitioner Women's Health
DX: R10.2 Pelvic and perineal pain (principal)
CPT/HCPCS: 76830; 76856

== ENCOUNTER 2022-12-04 11:01 | Outpatient (REF) | payer MEDICAID, SELFPAY ==
[2022-12-05 13:30] LABS: Chlamydia Result Negative (Negative); GC Result Negative (Negative)
== END 2022-12-04 11:02 | disposition home or self-care (01) ==
LOC: LBN 11:01
PROVIDERS: PCP Nurse Practitioner Family; Visit Provider Obstetrics & Gynecology Gynecology
DX: N89.8 Other specified noninflammatory disorders of vagina (principal); R10.32 Left lower quadrant pain
CPT/HCPCS: 87491; 87591

== ENCOUNTER 2023-01-18 03:26 | Outpatient (CLI) | payer MEDICAID, SELFPAY ==
[2023-01-18 10:18] LABS: HCT 35.7 % (36.0-46.0); HGB 12.2 g/dL (11.2-15.7); MCH 30.9 pg (27.0-33.0); MCHC 34.2 % (32.0-36.0); MCV 90 fL (80-95); MPV 9.9 fL (8.0-11.0); Platelet Count 280 10^3/uL (130-400); RBC 3.95 10^6/uL (3.93-5.22); RDW 12.5 % (11.7-14.6); RDW-SD 41.2 fL; WBC 7.58 10^3/uL (4.4-10.8)
[2023-01-18 10:40] LABS: Anion Gap 7.1 mmol/L (3-11); BUN 10 mg/dL (7-18); CO2 27.9 mmol/L (21.0-32.0); CREATININE 0.8 mg/dL (0.55-1.02); Calcium 8.6 mg/dL (8.5-10.1); Chloride 102 mmol/L (98-107); Estimated GFR 93.12 (mL/min/1.73m2); Glucose 103 mg/dL (74-106); Potassium 4.2 mmol/L (3.5-5.1); Sodium 137 mmol/L (136-145)
== END 2023-01-18 03:27 | disposition home or self-care (01) ==
LOC: LBO 03:27
PROVIDERS: PCP Nurse Practitioner Family; Visit Provider Obstetrics & Gynecology Gynecology
DX: Z01.818 Encounter for other preprocedural examination (principal)
CPT/HCPCS: 36415; 80048; 85027; 86850; 86900; 86901

== ENCOUNTER 2023-01-18 10:08 | Outpatient (REF) | payer MEDICAID, SELFPAY ==
--- NOTE | 2023-01-18 10:00 | ENDOMET_PTH ---
PATIENT: Adelita Fam LOC: [facility] U#:[id number] AGE/SX: 43/F ROOM: RE01/18/[address]: Chaparrita Montez : 1980 BED: DIS: 01/18/2023 SPEC #: [id number] RECD: 01/18/23 13:10 STATUS: ARNAUD RELaura #: [id number] CHIOMA: 01/18/23 10:[address]: Chaparrita Montez DEPT: Surgical Specimen RECD BY: Kasandra Beckman ENTERED: 01/18/23 13:11 SP TYPE: Endomet OTHR DR: Linnea Lee, DOCUMENTATION SPEC Tissues: 1 - ENDOMETRIUM BX/ZULLYETTE Procedures: GROSS AND MICRO LEVEL 4 Comments:
== END 2023-01-18 10:09 | disposition home or self-care (01) ==
LOC: LBN 10:08
PROVIDERS: PCP Nurse Practitioner Family; Visit Provider Obstetrics & Gynecology Gynecology
DX: N93.8 Other specified abnormal uterine and vaginal bleeding (principal); N85.8 Other specified noninflammatory disorders of uterus
CPT/HCPCS: 88305

== ENCOUNTER 2023-01-27 06:22 | Day surgery (SDC) | payer MEDICAID, SELFPAY ==
[2023-01-27] VITALS (10 sets, daily range): BP systolic 91–124; BP diastolic 43–80; PULSE 56–83; RESP 8–18; TEMP 36.1–36.6; O2SAT 97–100; BMI 24.8
--- NOTE | 2023-01-27 06:19 | W.ANESPRE ---
General Info Date of Service Date Performed: 01/27/23 Height: 5 ft 6.5 in Weight: 71 kg Body Mass Index (BMI): 24.8 Surgical Procedure: Operation Date: 01/27/23 07:40 Proposed Procedure Side Surgeon p HTA Endometrial Ablation Chaparrita Montez MD Meds Allergies and Home Medications Allergies Allergy/AdvReac Type Severity Reaction Status Date / Time No Known Allergies Allergy Verified 01/27/23 06:34 Home Medication Medication Instructions Recorded pantoprazole 40 mg tablet,delayed 40 mg PO DAILY #30 tabs 09/28/22 release (Protonix) adalimumab 40 mg/0.4 mL 40 mg subcut QWEEK 11/09/22 subcutaneous syringe kit (Humira(CF)) oxycodone-acetaminophen 5 mg-325 1 tab PO Q6H PRN pain #5 tabs 01/18/23 mg tablet (Endocet) ibuprofen 600 mg tablet 600 mg PO DAILY 01/27/23 Current Visit Medications: Current Medications Generic Name Dose Route Start Last Admin Trade Name Freq PRN Reason Stop Dose Admin Ringer's Solution 1,000 mls @ 125 mls/hr 01/27/23 06:00 IV 02/25/23 23:59 INFUSION GURDEEP IV Miscellaneous Supplies 1 each 01/27/23 06:00 Iv Access IV 02/25/23 23:59 DIRECTED GURDEEP Sodium Chloride 0 ml 01/27/23 06:00 Normal Saline Flush 10 Ml Syr IV 02/25/23 23:59 PRN PRN Sodium Chloride 0 ml 01/27/23 06:00 Normal Saline 10 Ml Vial IJ 02/25/23 23:59 DIRECTED PRN Sterile Water 0 ml 01/27/23 06:00 Water,Injection,Sterile 10 Ml Vial IJ 02/25/23 23:59 DIRECTED PRN PFSH Active Problems Active Problems: Problem Status Onset Code Rheumatoid arthritis involving multiple sites with positive rheumatoid factor 09/20/15 M05.79 Anxiety 02/01/18 F41.9 GERD (gastroesophageal reflux disease) K21.9 Dysphagia R13.10 Abnormality of left breast on screening mammogram R92.8 Screening cholesterol level Z13.220 Hyperpigmented skin lesion L81.9 Pharyngoesophageal dysphagia R13.14 Erosive esophagitis K22.10 Vaginal discharge N89.8 Abnormal uterine bleeding (AUB) N93.9 Medical History Medical History (Updated 01/27/23 @ 06:37 by Jaylene Gillette) Frequent headaches Hx of gastroesophageal reflux (GERD) Surgical History Surgical History (Updated 01/27/23 @ 06:36 by Jaylene Gillette) History of bilateral tubal ligation History of section History of hernia repair 01/26/23: Per pt, this was as a child and she is not sure what kind of hernia repair it was. -BR Hx of esophagogastroduodenoscopy Tobacco Smoking/Tobacco Use Status: Former Tobacco Use Passive smoking exposure: Yes Second hand exposure: Yes Alcohol Alcohol Intake: current Alcohol intake frequency: a few times a week Alcohol type: beer Substance Use Substance use: Never Substance use type: does not use Counseling provided: none Prental History History 4 Para 3 Hx # Term Pregnancies Multiple births 1 Hx # Pregnancies Ectopic pregnancies AB induced Hx Number of Living Children 2 AB spontaneous Vital Signs and Lab Results Vital Signs Most Recent Vital Signs in EMR: Temp Pulse Resp BP Pulse Ox 36.6 C 83 14 124/64 100 01/27/23 06:40 01/27/23 06:40 01/27/23 06:40 01/27/23 06:40 01/27/23 06:40 Lab Results Blood Type / Crossmatch: Patient ABO/Rh A Positive 01/18/23 Antibody Screen NEGATIVE 01/18/23 Complete Blood Count: White Blood Count 7.58 10^3/uL (4.4-10.8) 01/18/23 10:10 Red Blood Count 3.95 10^6/uL (3.93-5.22) 01/18/23 10:10 Hemoglobin 12.2 g/dL (11.2-15.7) 01/18/23 10:10 Hematocrit 35.7 % (36.0-46.0) L 01/18/23 10:10 Platelet Count 280 10^3/uL (130-400) 01/18/23 10:10 Complete Metabolic Panel: Sodium 137 mmol/L (136-145) 01/18/23 10:10 Potassium 4.2 mmol/L (3.5-5.1) 01/18/23 10:10 Chloride 102 mmol/L (98-107) 01/18/23 10:10 Carbon Dioxide 27.9 mmol/L (21.0-32.0) 01/18/23 10:10 BUN 10 mg/dL (7-18) 01/18/23 10:10 Creatinine 0.8 mg/dL (0.55-1.02) 01/18/23 10:10 Est GFR (CKD-EPI 2020) 93.12 (mL/min/1.73m2) 01/18/23 10:10 Calcium 8.6 mg/dL (8.5-10.1) 01/18/23 10:10 Glucose 103 mg/dL (74-106) 01/18/23 10:10 Liver Function Panel: No Data to Display Coagulation Panel: No Data to Display Cardiac Panel: No Data to Display Arterial Blood Gas: No Data to Display Venous Blood Gas: No Data to Display Pancreas Panel: No Data to Display Thyroid Panel: No Data to Display Infectious Disease: No Data to Display Blood Cultures: No Data to Display Toxicology Panel: No Data to Display Panel: No Data to Display Anesthesia Assessment and Plan Anesthesia History Personal History: No History of Anesthesia Complications Family History: No Family History of Anesthesia Complications Exercise Tolerance Exercise Tolerance: Metabolic Equivalents>4 Cardiac & Pulmonary Exam Cardiac Exam: Normal S1/S2 Heart Sounds Pulmonary Exam: Clear Bilateral Breath Sounds Implantable Cardiac Device Does patient have a Pacemaker or an ICD?: No Airway Exam Known Difficult Airway: No Mallampati Class: 2 Mouth Opening: Normal (> 3cm) Thyromental Distance: Greater than 3 cm Neck Range of Motion: Full ROM Neck Circumference: Normal Teeth Condition: Normal Dentition ASA Classification ASA Score: ASA 2 Emergency Case?: No NPO Status NPO Status: NPO Clears >2 hours, Solids >8 hours Status Status: Not Relevant due to Medical History Anesthesia Plan Resuscitation Status: Full Code Anesthesia Technique: General Anesthesia Airway Planned: LMA Monitors Used: Standard Monitors Preoperative Comments:: 43 yo female for endometrial ablation. Sig PMHx: RA, GERD/erosive esophagitis (has had EGD which was unremarkable with just a bump at the level of the cricopharyngeus. barium swallow which normal. she is on a PPI. She denies any reflex symptoms), anxiety, former smoker, occ EtOH. Previous Anes: - EGD, prop, natural airway, no issues.
[2023-01-27] MEDS: Lactated Ringers 1,000 ML 125 ML IV (07:10)
[2023-01-27] MEDS: Bupivacaine 0.25% Pres-Free 30 ML VIAL (08:23)
[2023-01-27] MEDS: Silver Nitrate Stick 1 EACH (08:36)
[2023-01-27] MEDS: fentaNYL 100 MCG/2 ML VIAL IVP ×2 (08:55→09:07)
--- NOTE | 2023-01-27 08:58 | W.ANESPOSTOP ---
Postoperative Evaluation Date, Time and Location Date Performed: 01/27/23 Time Performed: 08:58 Patient Location: PACU Vital Signs Most Recent Imported Vital Signs: Most Recent Vital Signs Temp Pulse Resp BP Pulse Ox 36.6 C 83 14 124/64 100 01/27/23 06:40 01/27/23 06:40 01/27/23 06:40 01/27/23 06:40 01/27/23 06:40 Pain Score Most Recent Pain Score: Most Recent Pain Score Pain Level 0 01/27/23 06:40 Assessment Mental Status: Arousable with meaningful communication Airway and Respiratory Function: Patent airway with normal (patient baseline) respiratory exam Cardiovascular Function: Hemodynamically Stable Hydration Status: Adequately Hydrated Nausea & Vomiting: No Nausea or Vomiting Pain: Pain is tolerable per patient (getting fent) Peripheral Nerve Block: Patient did not receive a nerve block
--- NOTE | 2023-01-27 09:16 | W.PM.DSUDISC ---
Date of service: 01/27/23 Time of Service: 09:16 Discharge Plan Disposition Patient Disposition: Home Discharge Details Reason For Visit: hydrothermal endometrial ablation Attending Provider: Chaparrita Montez Primary Care Provider: Linnea Lee Home Meds and New Rx's Prescriptions: No Action oxycodone-acetaminophen [Endocet] 5-325 mg tablet 1 tab PO Q6H MDD 4 PRN (Reason: pain) Qty: 5 0RF pantoprazole [Protonix] 40 mg tablet,delayed release (DR/EC) 40 mg PO DAILY Qty: 30 12RF Humira(CF) 40 mg/0.4 mL syringe kit 40 mg subcut QWEEK ibuprofen 600 mg Tablet 600 mg PO DAILY Discharge Instructions Additional Instructions: Take the Percocet one tablet every 6 hours as needed for pain not relieved by Ibuprofen. You can expect bleeding like a period for the next 3 days. You may use a tampon for any discharge after a week. Until then please use pads. Stand Alone Forms: Anesthesia Discharge Inst., DSU Post [employer] PRESIDENT [employer]NAG[employer] Surgery, Jenae Sheets (DSU) Activity:: Activity as Tolerated Diet:: As Tolerated Discharge Orders Discharge Orders: Discharge Order (Routine); Ordered 01/27/23 Ordered By: Chaparrita Montez
--- NOTE | 2023-01-27 09:27 | W.PM.OP ---
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 Unremarkable uterus and adnexa on pelvic ultrasound and preoperative endometrial biopsy shows disordered proliferative endometrium. Findings: Uterus anteverted, sounded to 8 cm with a thickened lining. Excellent treatment effect at the completion of the procedure. Procedure Description: Patient was taken to the operating room where she was placed in the dorsal supine position and general anesthesia was administered without difficulty. She was then placed in the dorsolithotomy position in yellowfin stirrups and prepped and draped in the usual sterile fashion. SCDs were in place. No antibiotics were required. After a surgical timeout was performed a bivalve speculum was placed in the patient's vagina. The anterior lip of the cervix was infiltrated with 0.5 cc 0.25% bupivacaine and a single-tooth tenaculum was used to grasp the anterior lip of the cervix. A paracervical block was performed with infiltration of 4 cc of 0.25% bupivacaine at the 4 o'clock and 8 o'clock paracervical spaces respectively. Cervix was then sequentially dilated to a maximum of 16 Roche. A hysteroscope sheath was inserted into the uterine cavity normal saline as distention medium and a cavity assessment was performed with the above noted findings. The tip of the hysteroscope sheath was positioned to allow visualization of the uterine fundus, both tubal ostia in the midportion of the uterine cavity. The sheath was protected from the vaginal nick by the speculum. Heated isotonic saline was then administered via gravity into the uterus through the sheath. Once a safety assessment was performed the treatment phase of the procedure began and under direct observation the uterine cavity was treated with heated isotonic saline at 90 ?C for 10 minutes. Intrauterine cool-down phase was performed for 1 minute. The uterine cavity was carefully assessed with hysteroscopy and the uterus was noted to have a satisfactory treatment effect and the integrity of the uterine cavity was confirmed. After these findings the hysteroscope was removed as were the instruments removed from the vagina. Tenaculum site was noted to be hemostatic after application of silver nitrate. The patient was placed in the dorsal supine position successfully awakened from anesthesia and transported to day surgery unit in stable condition. All sponge lap needle counts correct x2
[2023-01-27] MEDS: oxyCODONE 5 mg/Acetaminophen 325 mg TAB 1 TAB PO (10:04)
== END 2023-01-27 11:14 | disposition home or self-care (01) ==
PROVIDERS: PCP Nurse Practitioner Family; Visit Provider Obstetrics & Gynecology Gynecology
PROC: (CPT 58353; principal; 2023-01-27 07:30)
DX: N93.9 Abnormal uterine and vaginal bleeding, unspecified (principal)
CPT/HCPCS: 58563; 81025; J0131; J1100; J1885; J2250; J2405; J2704; J3010; J3475

== ENCOUNTER 2023-11-10 14:47 | Outpatient (REF) | payer MEDICAID, SELFPAY ==
--- NOTE | 2023-11-10 14:20 | PAPFT_PTH ---
PATIENT: Adelita Fam LOC: [facility] U#:[id number] AGE/SX: 43/F ROOM: RE11/10/[address]: Collette Coronel NP : 1980 BED: DIS: 11/10/2023 SPEC #: [id number] RECD: 11/10/23 15:44 STATUS: ITAArnold MILLER #: [id number] CHIOMA: 11/10/23 14:[address]: Collette Coronel NP DEPT: [facility] Cytology RECD BY: Roberta Haynes ENTERED: 11/10/23 15:44 SP TYPE: PAPFT OTHR DR: Linnea Lee NP Tissues: 1 - CX/ENDOCX FOR PAP SMEARS Procedures: PAP THIN PREP/[facility] Screening HPV DNA PROBE Comments: [id number]
== END 2023-11-10 14:48 | disposition home or self-care (01) ==
LOC: LBN 14:47
PROVIDERS: PCP Nurse Practitioner Family; Visit Provider Nurse Practitioner Women's Health
DX: Z12.4 Encounter for screening for malignant neoplasm of cervix (principal)
CPT/HCPCS: 88142; 87624

== ENCOUNTER 2024-05-09 11:47 | Outpatient (CLI) | payer MEDICAID, SELFPAY ==
--- NOTE | 2024-05-09 | DI.RAD_ITS ---
Exam(s) XR ARTHRITIS SERIES EXAM: XR ARTHRITIS SERIES CLINICAL HISTORY: M06.9 Rheumatoid arthritis,M79.643 Pain, Bilat hand pain. TECHNIQUE: 2D digital imaging was performed. Two images were obtained. COMPARISON: No exams were available for comparison FINDINGS: There are row shins involving the heads of the 1st metacarpal bones bilaterally. There is a deformit y involving the radial aspect of the head of the right 2nd metacarpal bone. The joint spaces are oth erwise well maintained. No bony productive changes are seen in the joint spaces. The bones are norm ally mineralized. No soft tissue calcifications or soft tissue swelling is noted. IMPRESSION: Findings raising the question of an inflammatory arthrosis. DATA REPOSITORY: RADIATION DOSE DELIVERED:
== END 2024-05-09 12:07 ==
LOC: DI 11:48
PROVIDERS: PCP Nurse Practitioner Family; Visit Provider Neuromusculoskeletal Medicine & OMM
DX: M79.642 Pain in left hand (principal)
CPT/HCPCS: 73120

== ENCOUNTER 2024-05-09 11:49 | Outpatient (CLI) | payer MEDICAID, SELFPAY ==
[2024-05-09 23:12] LABS: Rheumatoid Factor 144.4 IU/mL (<12.0)
[2024-05-10 14:24] LABS: ANA Interpretation Positive (Negative); ANA Titer Pattern 1:160 Homogeneous
== END 2024-05-09 11:50 | disposition home or self-care (01) ==
LOC: LBO 11:50
PROVIDERS: PCP Nurse Practitioner Family; Visit Provider Neuromusculoskeletal Medicine & OMM
DX: M06.9 Rheumatoid arthritis, unspecified (principal)
CPT/HCPCS: 36415; 86038; 86431

== ENCOUNTER 2024-11-10 00:51 | Outpatient (CLI) | payer MEDICAID, SELFPAY ==
--- NOTE | 2024-11-10 | DI.RAD_ITS ---
Exam(s) XR ANKLE RT COMPLETE EXAM: XR ANKLE RT COMPLETE CLINICAL HISTORY: INFLAMMATORY CHANGES TO JOINT, INC PAIN, ? EROSIONS, M25.579. TECHNIQUE: 2D digital imaging was performed. Three views. COMPARISON: No exams were available for comparison FINDINGS: BONES: No acute fracture is present. No bony destructive lesion is seen. Tiny plantar calcaneal sp ur. JOINTS: The ankle mortise is normally aligned. A joint effusion is present. SOFT TISSUE: Normal. IMPRESSION: Ankle joint effusion. No bony erosions. DATA REPOSITORY: RADIATION DOSE DELIVERED:
--- NOTE | 2024-11-10 | DI.US_ITS ---
Exam(s) US AAA SCREENING EXAM: US AAA SCREENING CLINICAL HISTORY: pulsatile mass mid abdomen, ? aaa, I71.40 aaa wo rupture, R19.00 COMPARISON: US US PELVIS TRANSVAGINAL from 12/02/2022 FINDINGS: There is no evidence of abdominal aortic aneurysm. Maximum diameter of the abdominal aorta is 2 cm, proximally. There is normal tapering of the aorta distally and there is no aneurysmal dilatation of the visualized common iliac arteries which both measure less than 1 cm. IMPRESSION: No evidence of abdominal aortic aneurysm. DATA REPOSITORY:
== END 2024-11-10 01:11 ==
LOC: DI 00:51
PROVIDERS: PCP Nurse Practitioner Family; Visit Provider Neuromusculoskeletal Medicine & OMM
DX: I71.40 Abdominal aortic aneurysm, without rupture, unspecified (principal); M25.571 Pain in right ankle and joints of right foot
CPT/HCPCS: 76706; 73610